=== PATIENT | female | born 1980 | race Caucasian/White ===

== ENCOUNTER 2016-06-11 08:55 | Emergency (ER) | payer SELFPAY ==
[~2016-06-11 08:55] MED LIST: ALBU8I INH
[2016-06-11 09:13] VITALS: RESP 16; O2SAT 100
--- NOTE | 2016-06-11 09:14 | PD ---
HPI Chief Complaint: Chest Pain Time Seen by Provider: 09:01 Travel History International Travel<30 days: No Contact w/Intl Traveler<30days: No Traveled to known affect area: No History of Present Illness HPI The patient is a 36-year-old female who presents emergency department for chest pain. The patient states she developed chest pain this morning while on her way to work. The chest pain was left-sided, sharp and dull, associated with tingling of the left arm, shortness of breath, and mild dizziness. The patient denied any nausea or vomiting. The patient does have a history of anxiety, however, states she's never had these symptoms with her anxiety in the past. The patient also states her heart felt like it was beating fast and occasionally irregular. The patient denies any known history of coronary artery disease, significant family history of heart disease at an early age, diabetes, hypertension, or hyperlipidemia. The patient does smoke a quarter pack of cigarettes per day. The patient states her current pain is 7/10. The patient also states she developed a dry nonproductive cough after the onset of her pain. The patient denies any fever, chills, or sweats. The patient denies any recent surgery, hospitalizations, prolonged travel, lower extremity edema, or history of PE/DVT. The patient denies any exertional component to her symptoms. PFSH Past Medical History Asthma: Yes Diminished Hearing: No Social History Alcohol Use: Yes (OCCASIONAL) Tobacco Use: Yes (OCCASIONAL) Substance Use: No Allergies-Medications (Allergen,Severity, Reaction): Coded Allergies: No Known Allergies (Verified , 05/10/14) Reported Meds & Prescriptions Reported Meds & Active Scripts Active Reported [Thrive Patch] 1 Patch TOPICAL DAILY Ventolin Hfa 18 GM Inh (Albuterol Sulfate) 90 Mcg/Act Aer 2 Puff INH Q4-6H PRN Review of Systems Except as stated in HPI: all other systems reviewed are Neg General / Constitutional: No: Fever HENT: Positive: Lightheadedness Cardiovascular: Positive: Chest Pain or Discomfort, Palpitations, No: Diaphoresis, Dyspnea on exertion Respiratory: Positive: Shortness of Breath Gastrointestinal: No: Nausea, Vomiting Musculoskeletal: No: Weakness Skin: No Rash Neurologic: Positive: Dizziness Physical Exam Narrative GENERAL: Awake, alert, 36 year-old female who appears her stated age and is in no acute respiratory distress. SKIN: Focused skin assessment warm/dry. HEAD: Atraumatic. Normocephalic. EYES: Pupils equal and round. No scleral icterus. No injection or drainage. ENT: No nasal bleeding or discharge. Mucous membranes pink and moist. NECK: Trachea midline. No JVD. CARDIOVASCULAR: Regular rate and rhythm. No murmur appreciated. Palpation of the chest wall does not reproduce her symptoms. RESPIRATORY: No accessory muscle use. Clear to auscultation. Breath sounds equal bilaterally. GASTROINTESTINAL: Abdomen soft, non-tender, nondistended. No rebound tenderness. MUSCULOSKELETAL: No obvious deformities. No clubbing. No cyanosis. No edema. NEUROLOGICAL: Awake and alert. No obvious cranial nerve deficits. Motor grossly within normal limits. Normal speech. PSYCHIATRIC: Appears slightly anxious. Data Data Last Documented VS Vital Signs Date Time Temp Pulse Resp B/P Pulse Ox O2 Delivery O2 Flow Rate FiO2 06/11/16 10:29 16 06/11/16 09:59 68 119/81 97 Room Air 06/11/16 09:39 98.1 Orders Electrocardiogram (06/11/16 09:09) Ckmb (Isoenzyme) Profile (06/11/16 09:09) Complete Blood Count With Diff (06/11/16 09:09) Comprehensive Metabolic Panel (06/11/16 09:09) D-Dimer (06/11/16 09:09) Magnesium (Mg) (06/11/16 09:09) Prothrombin Time / Inr (Pt) (06/11/16 09:09) Act Partial Throm Time (Ptt) (06/11/16 09:09) Troponin I (06/11/16 09:09) Lipase (06/11/16 09:09) Chest, Single Ap (06/11/16 09:09) Ecg Monitoring (06/11/16 09:09) Bilateral Bp Monitoring (06/11/16 09:09) Iv Access Insert/Monitor (06/11/16 09:09) Oximetry (06/11/16 09:09) Oxygen Administration (06/11/16 09:09) Aspirin Chew (Aspirin Chew) (06/11/16 09:15) Morphine Inj (Morphine Inj) (06/11/16 09:15) Sodium Chloride 0.9% Flush (Ns Flush) (06/11/16 09:15) Nitroglycerin Sl (Nitrostat Sl) (06/11/16 09:15) Sodium Chlorid 0.9% 500 Ml Inj (Ns 500 M (06/11/16 09:15) Ondansetron Inj (Zofran Inj) (06/11/16 09:15) Ketorolac Inj (Toradol Inj) (06/11/16 10:00) CKMB (06/11/16 09:13) CKMB% (06/11/16 09:13) Troponin I (06/11/16 11:13) Labs Laboratory Tests Test 06/11/16 06/11/16 09:13 11:20 White Blood Count 6.1 TH/MM3 Red Blood Count 4.73 MIL/MM3 Hemoglobin 13.7 GM/DL Hematocrit 41.1 % Mean Corpuscular Volume 86.9 FL Mean Corpuscular Hemoglobin 28.9 PG Mean Corpuscular Hemoglobin 33.2 % Concent Red Cell Distribution Width 12.4 % Platelet Count 375 TH/MM3 Mean Platelet Volume 7.5 FL Neutrophils (%) (Auto) 58.8 % Lymphocytes (%) (Auto) 29.2 % Monocytes (%) (Auto) 8.1 % Eosinophils (%) (Auto) 3.3 % Basophils (%) (Auto) 0.6 % Neutrophils # (Auto) 3.6 TH/MM3 Lymphocytes # (Auto) 1.8 TH/MM3 Monocytes # (Auto) 0.5 TH/MM3 Eosinophils # (Auto) 0.2 TH/MM3 Basophils # (Auto) 0.0 TH/MM3 CBC Comment DIFF FINAL Differential Comment Prothrombin Time 10.5 SEC Prothromb Time International 1.0 RATIO Ratio Activated Partial 28.1 SEC Thromboplast Time D-Dimer Quantitative (PE/DVT) 0.22 MG/L FEU Sodium Level 140 MEQ/L Potassium Level 3.7 MEQ/L Chloride Level 106 MEQ/L Carbon Dioxide Level 24.4 MEQ/L Anion Gap 10 MEQ/L Blood Urea Nitrogen 11 MG/DL Creatinine 0.89 MG/DL Estimat Glomerular Filtration 71 ML/MIN Rate Random Glucose 95 MG/DL Calcium Level 8.5 MG/DL Magnesium Level 1.9 MG/DL Total Bilirubin 0.5 MG/DL Aspartate Amino Transf 17 U/L (AST/SGOT) Alanine Aminotransferase 20 U/L (ALT/SGPT) Alkaline Phosphatase 61 U/L Total Creatine Kinase 103 U/L Creatine Kinase MB 1.4 NG/ML Troponin I LESS THAN 0.02 LESS THAN 0.02 NG/ML NG/ML Total Protein 7.7 GM/DL Albumin 3.9 GM/DL Lipase 93 U/L MDM Medical Decision Making Medical Screen Exam Complete: Yes Emergency Medical Condition: Yes Medical Record Reviewed: Yes Interpretation(s) EKG reveals normal sinus rhythm with a rate of 68. Inverted T-wave noted in lead 3. Nonspecific septal T-wave changes. Last Impressions Chest X-Ray 06/11/16908 Signed Impressions: Service Date/Time: Saturday, June 11, 2016 09:16 - CONCLUSION: Normal examination. Kristopher Mares MD Laboratory Tests Test 06/11/16 09:13 White Blood Count 6.1 TH/MM3 Red Blood Count 4.73 MIL/MM3 Hemoglobin 13.7 GM/DL Hematocrit 41.1 % Mean Corpuscular Volume 86.9 FL Mean Corpuscular Hemoglobin 28.9 PG Mean Corpuscular Hemoglobin 33.2 % Concent Red Cell Distribution Width 12.4 % Platelet Count 375 TH/MM3 Mean Platelet Volume 7.5 FL Neutrophils (%) (Auto) 58.8 % Lymphocytes (%) (Auto) 29.2 % Monocytes (%) (Auto) 8.1 % Eosinophils (%) (Auto) 3.3 % Basophils (%) (Auto) 0.6 % Neutrophils # (Auto) 3.6 TH/MM3 Lymphocytes # (Auto) 1.8 TH/MM3 Monocytes # (Auto) 0.5 TH/MM3 Eosinophils # (Auto) 0.2 TH/MM3 Basophils # (Auto) 0.0 TH/MM3 CBC Comment DIFF FINAL Differential Comment Prothrombin Time 10.5 SEC Prothromb Time International 1.0 RATIO Ratio Activated Partial 28.1 SEC Thromboplast Time D-Dimer Quantitative (PE/DVT) 0.22 MG/L FEU Sodium Level 140 MEQ/L Potassium Level 3.7 MEQ/L Chloride Level 106 MEQ/L Carbon Dioxide Level 24.4 MEQ/L Anion Gap 10 MEQ/L Blood Urea Nitrogen 11 MG/DL Creatinine 0.89 MG/DL Estimat Glomerular Filtration 71 ML/MIN Rate Random Glucose 95 MG/DL Calcium Level 8.5 MG/DL Magnesium Level 1.9 MG/DL Aspartate Amino Transf 17 U/L (AST/SGOT) Alanine Aminotransferase 20 U/L (ALT/SGPT) Alkaline Phosphatase 61 U/L Total Creatine Kinase 103 U/L Troponin I LESS THAN 0.02 NG/ML Total Protein 7.7 GM/DL Albumin 3.9 GM/DL Lipase 93 U/L Second troponin less than 0.02. Differential Diagnosis Differential diagnosis includes acute coronary syndrome, pleurisy, pneumonia, pneumothorax, pulmonary embolism, pleural effusion, panic attack, anxiety. Narrative Course IV was established, labs are drawn and sent, and the patient was placed on cardiac telemetry monitoring and continuous pulse oximetry monitoring. EKG was ordered and interpreted. Chest x-ray was obtained. The patient was administered aspirin, morphine, Zofran, and IV fluids. D-dimer was sent to lab. The patient states that she had no relief from nitroglycerin sublingual for her pain. The patient received morphine 2 mg intravenously, however, started crying, therefore, no further morphine was administered. Therefore, the patient was administered Toradol 30 mg intravenously. The patient's chest x -ray was unremarkable. The patient's d-dimer was 0.22, therefore, no indication for CT pulmonary angiogram. The patient has atypical symptoms with only one risk factor, tobacco use a quarter pack of cigarettes per day, therefore, a second troponin was ordered. The patient's second troponin is less than 0.02. Patient's low risk with only one risk factor and atypical symptoms, therefore, she is stable for outpatient follow-up. Diagnosis Primary Impression: Atypical chest pain Patient Instructions: General Instructions Additional Instructions: Take a baby aspirin daily. Motrin as needed for pain. Follow-up with a primary physician. Med/Other Pt SpecificInfo: Other (take a baby aspirin daily.) Disposition: 01 DISCHARGE HOME Condition: Stable Luis Love MD Jun 11, 2016 09:14
[2016-06-11] MEDS ORDERED: MORPHINE SULFATE 4 MG/ML INJ IV PUSH ONE (09:15)
[2016-06-11] MEDS ORDERED: NITROGLYCERIN 0.4 MG SL 25 TABS/BTL SL ONE (09:15)
[2016-06-11] MEDS ORDERED: ONDANSETRON HCL 4 MG/2 ML VIAL IV PUSH ONE (09:15)
[2016-06-11] MEDS ORDERED: SODIUM CHLORID 0.9% 500 ML INJ 500 ML IV ONE (09:15)
[2016-06-11] MEDS ORDERED: SODIUM CHLORIDE 0.9% FLUSH 10 ML FLUSH IVF PRN (09:15)
[2016-06-11] MEDS ORDERED: ASPIRIN 81 MG CHEW TAB PO ONE (09:15)
[2016-06-11 09:21] LABS: AUTOMATED NEUTROPHIL # 3.6 TH/MM3 (1.8-7.7); BASOPHIL % 0.6 % (0.0-2.0); EOSINOPHIL # 0.2 TH/MM3 (0-0.4); EOSINOPHIL % 3.3 % (0.0-4.0); HEMATOCRIT 41.1 % (35.0-46.0); HEMO FLAGS DIFF FINAL; LYMPH % 29.2 % (9.0-44.0); LYMPHOCYTE # 1.8 TH/MM3 (1.0-4.8); MEAN CELL VOLUME 86.9 FL (80.0-100.0); MEAN CORPUSCULAR HEMOGLOBIN 28.9 PG (27.0-34.0); MEAN CORPUSCULAR HGB CONC 33.2 % (32.0-36.0); MONO % 8.1 % (0.0-8.0); NEUT % 58.8 % (16.0-70.0); PLATELET COUNT 375 TH/MM3 (150-450); RED BLOOD COUNT 4.73 MIL/MM3 (4.00-5.30); RED CELL DISTRIBUTION WIDTH 12.4 % (11.6-17.2); WHITE BLOOD COUNT 6.1 TH/MM3 (4.0-11.0)
--- NOTE | 2016-06-11 09:24 | RADHPO ---
EXAM DATE/TIME: 06/11/2016 09:16 [facility] COMPARISON: CHEST PA & LAT, May 10, 2014, 16:56. INDICATIONS : Chest pain. MEDICAL HISTORY : Asthma. SURGICAL HISTORY : None. ENCOUNTER: Initial ACUITY: 1 day PAIN SCORE: 7/10 LOCATION: Left chest FINDINGS: A single view of the chest demonstrates the lungs to be symmetrically aerated without evidence of mas s, infiltrate or effusion. The cardiomediastinal contours are unremarkable. Osseous structures are intact. CONCLUSION: Normal examination. Kristopher Mares MD on June 11, 2016 at 9:23 Board Certified Radiologist. This report was verified electronically.
[2016-06-11] MEDS ORDERED: VENTAER INH (09:29)
[2016-06-11] MEDS ORDERED: THRIVE PATCH TOPICAL (09:29)
[2016-06-11 09:36] VITALS: BP_SYST 123; BP_SYST 126; BP_DIAS 77; BP_DIAS 78; PULSE 74; RESP 16; O2SAT 100
[2016-06-11 09:39] VITALS: BP 148/97; PULSE 70; RESP 18; TEMP 98.1; O2SAT 100
[2016-06-11 09:55] LABS: CHLORIDE 106 MEQ/L (98-107); POTASSIUM 3.7 MEQ/L (3.5-5.1); SODIUM (NA) 140 MEQ/L (136-145)
[2016-06-11 09:58] LABS: ANION GAP 10 MEQ/L (5-15); BICARBONATE 24.4 MEQ/L (21.0-32.0); MAGNESIUM 1.9 MG/DL (1.5-2.5)
[2016-06-11 09:59] VITALS: BP 119/81; PULSE 68; RESP 16; O2SAT 97
[2016-06-11] MEDS ORDERED: KETOROLAC TROMETHAMINE 30 MG/ML (IVP) VIAL IV PUSH ONE (10:00)
[2016-06-11 10:01] LABS: ALT (GPT) 20 U/L (10-53); AST (GOT) 17 U/L (15-37); GLOMERULAR FILTRATION RATE 71 ML/MIN (>89)
[2016-06-11 10:04] LABS: ALKALINE PHOSPHATASE 61 U/L (45-117); CREATINE KINASE 103 U/L (26-192)
[2016-06-11 10:05] LABS: BLOOD UREA NITROGEN 11 MG/DL (7-18)
[2016-06-11 10:06] LABS: APTT (PATIENT) 28.1 SEC (24.3-30.1); PROTHROMBIN TIME - PATIENT 10.5 SEC (9.8-11.6)
[2016-06-11 10:13] LABS: TOTAL BILIRUBIN ADULT 0.5 MG/DL (0.2-1.0)
[2016-06-11 10:16] LABS: CKMB 1.4 NG/ML (0.5-3.6)
[2016-06-11 10:29] VITALS: RESP 16
--- NOTE | 2016-06-12 21:08 | EKG ---
Date Performed: 06/11/2016 Time Performed: 08:59:10 PTAGE: 36 years EKG: Sinus rhythm . Septal T wave changes are nonspecific Borderline ECG PREVIOUS TRACING : 05/10/2014 16.49 Compared to prior tracing no significant change DOCTOR: Casimiro Tillman Interpretating Date/Time 06/12/2016 21:05:45
== END 2016-06-11 12:30 | disposition home or self-care (01) ==
LOC: PHED 08:55
DX: R07.89 Other chest pain (principal); R06.02 Shortness of breath; R42 Dizziness and giddiness; F17.210 Nicotine dependence, cigarettes, uncomplicated; J45.909 Unspecified asthma, uncomplicated; R94.31 Abnormal electrocardiogram [ECG] [EKG]
CPT/HCPCS: 71010; 80053; 82550; 82552; 83690; 83735; 84484; 85025; 85379; 85610; 85730; 93005; 96361; 96374; 96375; 99285; J1885; J2270; J2405; J7040